=== PATIENT | female | born 1995 | race African-American/Black ===

== ENCOUNTER 2023-11-02 12:01 | Emergency (ER) | payer OTHER ==
[~2023-11-02] VITALS: Ht 162.6 cm; Wt 54.1 kg
[2023-11-02 13:28] LABS: EOSINOPHILS % (AUTO) 1.1 % (1.0-6.0); HEMATOCRIT 34.6 % (41-53); HEMOGLOBIN 11.1 g/dL (13.5-17.5); LYMPHOCYTES # (AUTO) 1.9 K/uL (1.0-4.8); LYMPHOCYTES % (AUTO) 37.2 % (22.0-44.0); MEAN CORPUSCULAR HEMOGLOBIN 27.5 pg (26.0-34.0); MEAN CORPUSCULAR HGB CONC 31.9 G/dL (31.0-37.0); MEAN CORPUSCULAR VOLUME 86 fL (80-100); MONOCYTES # (AUTO) 0.7 K/uL (0.1-1.0); MONOCYTES % (AUTO) 12.8 % (2.0-9.0); NEUTROPHILS # (AUTO) 2.5 K/uL (1.8-7.7); NEUTROPHILS % (AUTO) 47.9 % (40.0-70.0); PLATELET COUNT (AUTO) 317 K/uL (150-450); RED BLOOD CELL COUNT(AUTO) 4.03 MIL/uL (4.50-5.90); RED CELL DISTRIBUTION WIDTH 12.9 % (11.5-14.5); WHITE BLOOD COUNT (AUTO) 5.2 K/uL (4.5-11.0)
[2023-11-02 13:48] LABS: ANION GAP 8 mmol/L (8-16); CARBON DIOXIDE 28 mmol/L (22-29); CHLORIDE 104 mmol/L (98-107); GLOMERULAR FILTR. RATE CALC > 60 mL/min (>60); GLUCOSE,RANDOM 90 mg/dL (70-110); POTASSIUM 3.7 mmol/L (3.5-5.1); SODIUM SERUM 140 mmol/L (136-145); UREA NITROGEN, BLOOD 2 mg/dL (7-18)
[2023-11-02 13:49] LABS: ALCOHOL, BLOOD (SERUM) < 3 mg/dL (0-10)
[2023-11-02] MEDS: OLANZapine 5 MG TABLET PO ONE (13:54)
[2023-11-02] MEDS: LORazepam 2 MG TABLET PO ONE (13:54)
[2023-11-02] MEDS: DiphenhydrAMINE HCL 25 MG CAPSULE PO ONE (13:54)
[2023-11-02 13:56] VITALS: TEMP 98
[2023-11-02 14:35] LABS: COVID AG,FIA SOURCE NASAL SWAB
[2023-11-02 14:55] VITALS: BP 123/65; PULSE 92; RESP 18
[2023-11-02 15:04] LABS: ALCOHOL, URINE DRUG SCREEN NEGATIVE (NEGATIVE); AMPHET/METH SCREEN,URINE NEGATIVE (NEGATIVE); BARBITURATE SCREEN, URINE NEGATIVE (NEGATIVE); BENZODIAZEPINES SCREEN,URINE NEGATIVE (NEGATIVE); CANNABINOID SCREEN,URINE POSITIVE (NEGATIVE); COCAINE SCREEN,URINE NEGATIVE (NEGATIVE); METHADONE SCREEN, URINE NEGATIVE (NEGATIVE); OPIATE SCREEN,URINE NEGATIVE (NEGATIVE); PHENCYCLIDINE SCREEN,URINE NEGATIVE (NEGATIVE)
[2023-11-02 15:20] LABS: SARS-COV2 (COVID) ANTIGEN,FIA Negative (Negative)
== END 2023-11-02 15:20 | disposition home or self-care (01) ==
LOC: EDSEX 12:01 → EMS 12:01
DX: F29 Unspecified psychosis not due to a substance or known physiological condition (principal); F20.9 Schizophrenia, unspecified; Z88.8 Allergy status to other drugs, medicaments and biological substances; Z20.822 Contact with and (suspected) exposure to COVID-19
CPT/HCPCS: 99285; 87426; 80048; 85025; 36415; 80307; G0480

== ENCOUNTER 2023-11-02 14:59 | Inpatient (IN) | payer MEDICAID, OTHER ==
[~2023-11-02] VITALS: Ht 167.6 cm; Wt 56.9 kg
[2023-11-02 09:30] VITALS: BP 124/68; PULSE 68; RESP 18; TEMP 98.4
[2023-11-02 17:38] VITALS: BP 130/87; PULSE 93; RESP 18; TEMP 97; O2SAT 98
[2023-11-02 20:05] VITALS: BP 107/56; PULSE 89; RESP 17; TEMP 97.7; O2SAT 98
[2023-11-02] MEDS ORDERED: GuaiFENesin/D-METHORPHAN [SUGAR-FREE] 200-20MG/10 ML SYRUP UDCUP PO PRN (22:00)
[2023-11-02] MEDS ORDERED: PROMETHAZINE HCL 25 MG TABLET PO PRN (22:00)
[2023-11-02] MEDS ORDERED: HydrOXYzine PAMOATE 50 MG CAPSULE PO PRN (22:00)
[2023-11-02] MEDS ORDERED: MAGNESIUM HYDROXIDE SUSPENSION 30 ML UDCUP PO PRN (22:00)
[2023-11-02] MEDS ORDERED: TUBERCULIN, PURIFIED PROTEIN DERIVATIVE 5 TU/0.1 ML SYRINGE ID ONE (22:00)
[2023-11-02] MEDS ORDERED: MAG HYDROX/ALUMINUM HYD/SIMETH ES 30 ML SUSPENSION UDCUP PO PRN (22:00)
[2023-11-02] MEDS ORDERED: LOPERAMIDE HCL 2 MG CAPSULE PO PRN (22:00)
[2023-11-02] MEDS: OLANZapine 5 MG RAPDIS TABLET PO ONE (22:45)
[2023-11-02] MEDS: LORazepam 2 MG TABLET PO PRN (23:20)
[2023-11-02] MEDS: ZOLPIDEM TARTRATE 10 MG TABLET PO PRN (23:21)
[2023-11-03] MEDS: OLANZapine 5 MG RAPDIS TABLET PO PRN (04:50)
[2023-11-03] MEDS ORDERED: IBUPROFEN 600 MG TABLET PO PRN (05:30)
[2023-11-03 06:01] VITALS: BP 129/82; PULSE 92; RESP 18; TEMP 97.5; O2SAT 100
[2023-11-03] MEDS: ACETAMINOPHEN 325 MG TABLET PO PRN (06:01)
[2023-11-03 08:49] LABS: BASOPHILS % (AUTO) 0.9 % (0.0-2.0); EOSINOPHILS % (AUTO) 2.9 % (1.0-6.0); HEMATOCRIT 34.8 % (36-46); HEMOGLOBIN 11.1 g/dL (12.0-16.0); LYMPHOCYTES # (AUTO) 1.7 K/uL (1.0-4.8); LYMPHOCYTES % (AUTO) 45.3 % (22.0-44.0); MEAN CORPUSCULAR HEMOGLOBIN 27.7 pg (26.0-34.0); MEAN CORPUSCULAR VOLUME 86 fL (80-100); MONOCYTES # (AUTO) 0.3 K/uL (0.1-1.0); MONOCYTES % (AUTO) 8.7 % (2.0-9.0); NEUTROPHILS # (AUTO) 1.6 K/uL (1.8-7.7); NEUTROPHILS % (AUTO) 42.2 % (40.0-70.0); PLATELET COUNT (AUTO) 312 K/uL (150-450); RED BLOOD CELL COUNT(AUTO) 4.03 MIL/uL (4.00-5.20); RED CELL DISTRIBUTION WIDTH 12.7 % (11.5-14.5); WHITE BLOOD COUNT (AUTO) 3.8 K/uL (4.5-11.0)
[2023-11-03] MEDS: MULTIVITAMINS WITH MINERALS, THERAPEUTIC TABLET PO SCH (08:53)
[2023-11-03] MEDS: FAMOTIDINE 20 MG TABLET PO SCH (08:53)
[2023-11-03] MEDS: OMEGA-3/DHA/EPA/FISH OIL 1,000 MG CAPSULE PO SCH (08:53)
[2023-11-03] MEDS: NALTREXONE HCL 50 MG TABLET PO SCH (08:53)
[2023-11-03] MEDS: FOLIC ACID 1 MG TABLET PO SCH (08:53)
[2023-11-03] MEDS: OLANZapine 5 MG RAPDIS TABLET PO SCH ×2 (08:54→20:23)
[2023-11-03] MEDS: THIAMINE 100 MG TABLET PO SCH (08:54)
[2023-11-03] MEDS: FLUoxetine HCL 10 MG CAPSULE PO SCH (09:00)
[2023-11-03 09:05] LABS: HEMOGLOBIN A1C 5.3 % (3.8-5.6)
[2023-11-03] MEDS ORDERED: ChlorproMAZINE HCL 50 MG/2 ML AMP ONE (09:06)
[2023-11-03 09:24] LABS: ALANINE AMINOTRANSFERASE 19 U/L (12-78); ALBUMIN 3.3 g/dL (3.4-5.0); ALKALINE PHOSPHATASE 56 U/L (46-116); ANION GAP 5 mmol/L (8-16); ASPARTATE AMINOTRANSFERASE 17 U/L (15-37); BILIRUBIN,TOTAL 0.4 mg/dL (0.1-1.0); CALCIUM, TOTAL 8.6 mg/dL (8.8-10.5); CARBON DIOXIDE 31 mmol/L (22-29); CHLORIDE 103 mmol/L (98-107); CHOL/HDL RATIO 1.9 (3.9-5.7); CHOLESTEROL 124 mg/dL (131-200); CREATININE 0.61 mg/dL (0.60-1.30); FREE T4 (FREE THYROXINE) 1.18 ng/dL (0.76-1.46); GLOMERULAR FILTR. RATE CALC > 60 mL/min (>60); GLUCOSE,RANDOM 97 mg/dL (70-110); HDL CHOLESTEROL 67 mg/dL (40-60); LDL CHOL (CALC.) 53 mg/dL (0-130); POTASSIUM 3.5 mmol/L (3.5-5.1); SODIUM SERUM 139 mmol/L (136-145); THYROID STIMULATING HORMONE 0.81 uIU/mL (0.36-3.74); TOTAL PROTEIN, SERUM 6.8 g/dL (6.4-8.2); TRIGLYCERIDES 20 mg/dL (15-150); UREA NITROGEN, BLOOD 6 mg/dL (7-18)
[2023-11-03 09:48] LABS: HCG,QUAL URINE NEGATIVE (NEGATIVE)
[2023-11-03 09:57] LABS: ALCOHOL, URINE DRUG SCREEN NEGATIVE (NEGATIVE); AMPHET/METH SCREEN,URINE NEGATIVE (NEGATIVE); BENZODIAZEPINES SCREEN,URINE NEGATIVE (NEGATIVE); CANNABINOID SCREEN,URINE POSITIVE (NEGATIVE); COCAINE SCREEN,URINE NEGATIVE (NEGATIVE); METHADONE SCREEN, URINE NEGATIVE (NEGATIVE); OPIATE SCREEN,URINE NEGATIVE (NEGATIVE); PHENCYCLIDINE SCREEN,URINE NEGATIVE (NEGATIVE)
[2023-11-03 10:07] LABS: BARBITURATE SCREEN, URINE NEGATIVE (NEGATIVE)
[2023-11-03] MEDS: ChlorproMAZINE HCL 50 MG/2 ML AMP IM ONE (10:25)
[2023-11-03 13:34] VITALS: BP 118/85; RESP 18; TEMP 97.3; O2SAT 100
[2023-11-03] MEDS: LORazepam 2 MG TABLET PO PRN (13:50)
[2023-11-03] MEDS ORDERED: MAGNESIUM HYDROXIDE SUSPENSION 30 ML UDCUP PO PRN (18:15)
[2023-11-03] MEDS ORDERED: MAG HYDROX/ALUMINUM HYD/SIMETH ES 30 ML SUSPENSION UDCUP PO PRN (18:15)
[2023-11-03] MEDS ORDERED: GuaiFENesin/D-METHORPHAN [SUGAR-FREE] 200-20MG/10 ML SYRUP UDCUP PO PRN (18:15)
[2023-11-03] MEDS ORDERED: LOPERAMIDE HCL 2 MG CAPSULE PO PRN (18:15)
[2023-11-03] MEDS: OLANZapine 5 MG RAPDIS TABLET PO ONE (18:37)
[2023-11-03] MEDS: DIVALPROEX SODIUM 500 MG ER TABLET PO SCH (20:23)
[2023-11-03] MEDS: MELATONIN 5 MG TABLET PO SCH (20:23)
[2023-11-03 20:38] VITALS: BP 98/54; RESP 17; TEMP 97.7; O2SAT 99
[2023-11-03] MEDS ORDERED: MELATONIN 5 MG TABLET PO SCH (21:00)
[2023-11-04 02:13] VITALS: RESP 18
[2023-11-04] MEDS: OLANZapine 5 MG RAPDIS TABLET PO PRN (02:17)
[2023-11-04] MEDS: ZOLPIDEM TARTRATE 10 MG TABLET PO PRN (02:17)
[2023-11-04] MEDS: ACETAMINOPHEN 325 MG TABLET PO PRN (02:18)
[2023-11-04] MEDS: NALTREXONE HCL 50 MG TABLET PO SCH (08:27)
[2023-11-04] MEDS: THIAMINE 100 MG TABLET PO SCH (08:27)
[2023-11-04] MEDS: MULTIVITAMINS WITH MINERALS, THERAPEUTIC TABLET PO SCH (08:27)
[2023-11-04] MEDS: FOLIC ACID 1 MG TABLET PO SCH (08:27)
[2023-11-04 09:00] VITALS: BP 108/73; PULSE 101; RESP 18; TEMP 96.8; O2SAT 98
[2023-11-04] MEDS ORDERED: PRENATAL NO.137/IRON/FOLIC ACID TABLET PO SCH (09:00)
[2023-11-04 13:18] LABS: HCG,QUANTITATIVE 1 mIU/mL (0-6)
[2023-11-04 13:34] VITALS: RESP 18
[2023-11-04 14:34] VITALS: RESP 18
[2023-11-04] MEDS: HydrOXYzine PAMOATE 50 MG CAPSULE PO PRN (16:05)
[2023-11-04] MEDS ORDERED: LORazepam 2 MG/ML VIAL ONE (18:07)
[2023-11-04] MEDS ORDERED: ChlorproMAZINE HCL 50 MG/2 ML AMP ONE (18:07)
[2023-11-04] MEDS ORDERED: DiphenhydrAMINE HCL 50 MG/ML VIAL ONE (18:07)
[2023-11-04] MEDS: ChlorproMAZINE HCL 50 MG/2 ML AMP IM ONE (18:32)
[2023-11-04] MEDS: LORazepam 2 MG/ML VIAL IM ONE (18:32)
[2023-11-04] MEDS: DiphenhydrAMINE HCL 50 MG/ML VIAL IM ONE (18:32)
[2023-11-04 20:00] VITALS: RESP 16
[2023-11-04] MEDS: VALPROIC ACID 250 MG/5 ML SOLUTION UDCUP PO SCH (21:00)
[2023-11-04] MEDS: OLANZapine 10 MG RAPDIS TABLET PO SCH (21:00)
[2023-11-05 08:39] VITALS: BP 135/83; PULSE 100; RESP 16; TEMP 97.6; O2SAT 98
[2023-11-05] MEDS: LORazepam 2 MG/ML VIAL IM ONE (15:48)
[2023-11-05] MEDS: ChlorproMAZINE HCL 50 MG/2 ML AMP IM ONE (15:49)
[2023-11-05] MEDS: DiphenhydrAMINE HCL 50 MG/ML VIAL IM ONE (15:52)
[2023-11-05 21:21] VITALS: BP 142/83; PULSE 135; RESP 16; TEMP 97.6; O2SAT 98
[2023-11-05 22:04] VITALS: BP 142/83; PULSE 98; RESP 18; TEMP 98.4; O2SAT 98
[2023-11-05 22:21] VITALS: RESP 18; O2SAT 98
[2023-11-06 07:50] VITALS: RESP 17
[2023-11-06 08:28] VITALS: BP 125/80; PULSE 100; RESP 16; TEMP 97.6; O2SAT 97
[2023-11-06 08:50] VITALS: RESP 16
[2023-11-06 13:04] VITALS: RESP 17
[2023-11-06 14:04] VITALS: RESP 16
[2023-11-06] MEDS: ChlorproMAZINE HCL 100 MG TABLET PO ONE (16:13)
[2023-11-06] MEDS: ChlorproMAZINE HCL 100 MG TABLET PO SCH (17:55)
[2023-11-07 08:12] VITALS: RESP 16
[2023-11-07 08:15] VITALS: BP 120/71; PULSE 123; RESP 18; TEMP 97.7; O2SAT 99
[2023-11-07 08:30] VITALS: PULSE 130; RESP 18; O2SAT 99
[2023-11-07 20:00] VITALS: BP 119/81; PULSE 104; RESP 16; TEMP 97.5; O2SAT 92
[2023-11-08 08:06] VITALS: BP 126/72; PULSE 100; RESP 19; TEMP 98; O2SAT 99
[2023-11-08] MEDS: ChlorproMAZINE HCL 100 MG TABLET PO PRN (16:09)
[2023-11-08 20:00] VITALS: BP 123/80; PULSE 104; RESP 17; TEMP 96.4; O2SAT 99
[2023-11-09 02:08] VITALS: BP 110/63; PULSE 96; TEMP 97.6
[2023-11-09 08:11] VITALS: BP 109/77; PULSE 100; RESP 18; TEMP 98; O2SAT 99
[2023-11-09 09:15] VITALS: RESP 18
[2023-11-09 10:15] VITALS: RESP 18
[2023-11-09 16:18] VITALS: RESP 18
[2023-11-09] MEDS: ChlorproMAZINE HCL 100 MG TABLET PO SCH (16:18)
[2023-11-09] MEDS: IBUPROFEN 400 MG TABLET PO PRN (16:19)
[2023-11-09 20:00] VITALS: BP 113/74; PULSE 100; RESP 16; TEMP 97.3; O2SAT 97
[2023-11-10 09:18] VITALS: BP 116/71; PULSE 100; RESP 16; TEMP 97.8; O2SAT 96
[2023-11-10] MEDS ORDERED: CHLO100T42 PO (16:38)
[2023-11-10] MEDS ORDERED: NALT50TA33 PO (16:38)
[2023-11-10] MEDS ORDERED: MELA5TAB40 PO (16:38)
[2023-11-10 20:00] VITALS: BP 120/68; PULSE 98; RESP 16; TEMP 97.5; O2SAT 98
[2023-11-11] MEDS: PROMETHAZINE HCL 25 MG TABLET PO PRN (06:28)
[2023-11-11 08:08] VITALS: RESP 18
[2023-11-11] MEDS ORDERED: CHLO100T42 PO ×2 (08:45→15:36)
[2023-11-11] MEDS ORDERED: MELA5TAB21 PO (08:46)
[2023-11-11] MEDS ORDERED: NALT50TA33 PO ×2 (08:47→15:36)
[2023-11-11] MEDS ORDERED: MELA5TAB40 PO (15:36)
== END 2023-11-11 16:30 | disposition home or self-care (01) | DRG 750 ==
LOC: B2S 15:59 → B3A 11-03 14:51
PROVIDERS: ADMIT Psychiatry & Neurology Psychiatry; ATTEND Psychiatry & Neurology Psychiatry
PROC: GZHZZZZ Group Psychotherapy (ICD-10-PCS; principal; 2023-11-03)
PROC: GZ56ZZZ Individual Psychotherapy, Supportive (ICD-10-PCS; 2023-11-03)
DX: F25.0 Schizoaffective disorder, bipolar type (principal); R45.851 Suicidal ideations; D64.9 Anemia, unspecified; F41.9 Anxiety disorder, unspecified; I10 Essential (primary) hypertension; K21.9 Gastro-esophageal reflux disease without esophagitis; F17.200 Nicotine dependence, unspecified, uncomplicated; F15.20 Other stimulant dependence, uncomplicated; F12.20 Cannabis dependence, uncomplicated; F10.20 Alcohol dependence, uncomplicated; Y90.9 Presence of alcohol in blood, level not specified; T43.596A Underdosing of other antipsychotics and neuroleptics, initial encounter; Y92.89 Other specified places as the place of occurrence of the external cause; Z63.9 Problem related to primary support group, unspecified; Z59.9 Problem related to housing and economic circumstances, unspecified; Z65.3 Problems related to other legal circumstances; Z55.9 Problems related to education and literacy, unspecified; Z59.00 Homelessness unspecified
CPT/HCPCS: 80053; 80061; 80307; 83036; 84439; 84443; 84702; 84703; 85025; 86592; J1200; J2060; J3230

== ENCOUNTER 2023-11-06 19:02 | Emergency (ER) | payer MEDICAID, OTHER ==
[~2023-11-06] VITALS: Ht 162.6 cm; Wt 61.4 kg
[2023-11-06 19:16] VITALS: TEMP 97.8
[2023-11-06] MEDS: ACETAMINOPHEN 325 MG TABLET PO ONE (22:47)
[2023-11-07 01:04] LABS: ANION GAP 8 mmol/L (8-16); BASOPHILS % (AUTO) 0.5 % (0.0-2.0); CALCIUM, TOTAL 8.5 mg/dL (8.8-10.5); CARBON DIOXIDE 28 mmol/L (22-29); CHLORIDE 101 mmol/L (98-107); CREATININE 0.74 mg/dL (0.60-1.30); EOSINOPHILS % (AUTO) 2.5 % (1.0-6.0); GLOMERULAR FILTR. RATE CALC > 60 mL/min (>60); GLUCOSE,RANDOM 103 mg/dL (70-110); HEMATOCRIT 34.1 % (36-46); HEMOGLOBIN 11.1 g/dL (12.0-16.0); LYMPHOCYTES # (AUTO) 1.6 K/uL (1.0-4.8); LYMPHOCYTES % (AUTO) 21.3 % (22.0-44.0); MEAN CORPUSCULAR HEMOGLOBIN 27.9 pg (26.0-34.0); MEAN CORPUSCULAR HGB CONC 32.7 G/dL (31.0-37.0); MEAN CORPUSCULAR VOLUME 85 fL (80-100); MONOCYTES # (AUTO) 0.7 K/uL (0.1-1.0); MONOCYTES % (AUTO) 9.3 % (2.0-9.0); NEUTROPHILS # (AUTO) 5.1 K/uL (1.8-7.7); NEUTROPHILS % (AUTO) 66.4 % (40.0-70.0); PLATELET COUNT (AUTO) 332 K/uL (150-450); POTASSIUM 3.5 mmol/L (3.5-5.1); SODIUM SERUM 137 mmol/L (136-145); UREA NITROGEN, BLOOD 12 mg/dL (7-18); WHITE BLOOD COUNT (AUTO) 7.6 K/uL (4.5-11.0)
[2023-11-07] MEDS: LORazepam 1 MG TABLET PO ONE (04:01)
[2023-11-07] MEDS: DiphenhydrAMINE HCL 25 MG CAPSULE PO ONE (04:01)
[2023-11-07 06:37] VITALS: BP 123/72; PULSE 96; RESP 18
== END 2023-11-07 07:57 ==
LOC: EMS 19:05
DX: S09.90XA Unspecified injury of head, initial encounter (principal); F20.9 Schizophrenia, unspecified; X58.XXXA Exposure to other specified factors, initial encounter; Y93.89 Activity, other specified; Y92.89 Other specified places as the place of occurrence of the external cause; Y99.8 Other external cause status
CPT/HCPCS: 70450; 72125; 76856; 80048; 84703; 85025; 99284